=== PATIENT | female | born 2005 | race Caucasian/White ===

== ENCOUNTER 2025-05-27 13:23 | Emergency (ER) | payer MEDICAID, SELFPAY ==
[2025-05-27 14:31] VITALS: BP 120/88; PULSE 118; RESP 18; TEMP 36.7; O2SAT 98; BMI 40.6
--- NOTE | 2025-05-27 14:32 | XR_ITS ---
Examination: CT abdomen and pelvis without contrast. Coronal 3-D reconstructions. Sagittal 2-D reconstructions. Date and time of exam: 05/27/2025 at 4:19 p.m. CTDI: vol (mGy): 11 point DLP: (mGycm): 671 Technique: Axial images of the abdomen have been obtained, 3 mm slice thickness Intravenous contrast material has not been administered. Low dose protocols were performed. One or more of the following dose reduction techniques were used; automated exposure control, adjustment of the mA and/or KV according to patient size, use of iterative reconstruction technique. Findings: Both lower lung zones are clear. No abnormalities are seen in the visible thoracic spine or within the lumbosacral spine or pelvis or hips. The CT appearance of both right and left kidneys and adrenal glands and spleen and pancreas are normal. There is significant enlargement of the liver and there is major fatty infiltration noted throughout the entire liver., In this morbidly obese patient In the pelvis the uterus has a normal size and configuration. Both ovaries are normal in size and appearance. The appendix is seen exceptionally well, its filled with air in its entirely normal. The loops of small bowel and colon all appear normal IMPRESSION: 1. The liver is significantly enlarged and there is major fatty infiltration noted throughout the entire liver 2 the appendix is the deflate identified and entirely normal. 3. The entire abdomen and pelvis have a normal CT appearance in all other respects
[2025-05-27 15:00] LABS: Basophils # (Auto) 0.0 Thou/mm3 (0.0-0.2); Basophils % (Auto) 0 % (0-2.5); Eosinophils # (Auto) 0.0 Thou/mm3 (0.0-0.5); Eosinophils % (Auto) 0 % (0-10); Hematocrit 41.8 % (36.0-46.0); Hemoglobin 13.3 g/dL (12.0-16.0); Immature Granulocytes Auto 0.03 Thou/mm3 (0.00-0.00); Lymphocytes # (Auto) 0.7 Thou/mm3 (1.0-4.8); Lymphocytes % (Auto) 7 % (10-50); Mean Corpuscular HGB Conc 31.8 g/dl (31.0-37.0); Mean Corpuscular Hemoglobin 27.6 pg (25.0-35.0); Mean Corpuscular Volume 87 fL (80-100); Monocytes # (Auto) 0.5 Thou/mm3 (0.0-0.8); Monocytes % (Auto) 4 % (0-12); Neutrophils # (Auto) 9.8 Thou/mm3 (1.8-7.7); Neutrophils % (Auto) 88 % (37-80); Nucleated Red Blood Cell # 0.00 Thou/mm3 (0.00-0.00); Nucleated Red Blood Cell % 0 /100 WBC (0); Platelet Count 281 Thou/mm3 (140-440); RDW Standard Deviation 45.6 fL (36.4-46.3); Red Blood Count 4.82 Miln/mm3 (4.00-5.20); White Blood Count 11.1 Thou/mm3 (4.5-11.0)
[2025-05-27 15:18] LABS: Alanine Aminotransferase 29 U/L (10-49); Albumin, Serum 4.6 gm/dL (3.5-5.0); Albumin/Globulin Ratio 1.5 (1.2-2.2); Alkaline Phosphatase 65 U/L (46-116); Anion Gap 12 (7-16); Aspartate Amino Transferase 24 U/L (0-34); BUN/Creatinine Ratio 11 Ratio (12-20); Bilirubin,Total 0.5 mg/dL (0.3-1.2); Blood Urea Nitrogen 11 mg/dL (9-23); Calcium 9.1 mg/dL (8.3-10.6); Calcium (Corrected) 9.1 mg/dL (8.5-10.1); Carbon Dioxide 26.4 mMol/L (20.0-31.0); Chloride 105 mMol/L (98-107); Creatinine (Component) 1.0 mg/dL (0.6-1.3); Estimated Creatinine Clearance 95.9 mL/min (>60); Globulin 3.1 gm/dL (2.3-3.5); Glucose 104 mg/dL (74-106); Lipase 31 U/L (12-53); Osmolality,Calculated 284 (275-295); Potassium 3.9 mMol/L (3.4-5.1); Sodium 143 mMol/L (136-145); Total Protein 7.7 gm/dL (5.7-8.2); eGFR > 60 See Note
[2025-05-27 15:20] LABS: Collection Type, Urine Clean Catch
[2025-05-27 15:39] LABS: HCG Qualitative,Urine Negative
[2025-05-27 15:42] LABS: Bacteria,Urine 1+; Bilirubin,Urine Negative (Negative); Blood,Urine 2+ (Negative); Color,Urine Yellow (Lt Yel-Yel); Glucose, Urine Negative (Negative); Hyaline Casts,Urine < 1 /hpf (0-1); Ketones,Urine Negative (Negative); Leukocyte Esterase,Urine Positive (Negative); Nitrite,Urine Negative (Negative); PH,Urine 6.0 (5.0-7.0); Protein,Urine 2+ (Neg - Trace); RBC,Urine 6 /hpf (0-3); Specific Gravity,Urine 1.042 (1.001-1.035); Squamous Epithelial Cell,Urine 30 /hpf (0-5); Urobilinogen,Urine Negative mg/dL (0.0-1.0); WBC,Urine 34 /hpf (0-5)
[2025-05-27 15:56] LABS: Clarity,Urine Hazy (Clear/Hazy)
[2025-05-27] MEDS: PANTOPRAZOLE 40 MG TABLET PO (16:05)
[2025-05-27] MEDS: DICYCLOMINE INJ 10 MG/ML 2ML VIAL IM (16:06)
[2025-05-27] MEDS: ONDANSETRON INJ 2 MG/ML INJ 2 ML 4 MG IVP (18:11)
[2025-05-27 18:18] VITALS: PULSE 89; O2SAT 99
--- NOTE | 2025-05-27 18:32 | PD.EDABDPN ---
ED Abdominal Pain RME/HPI General Chief Complaint: Nausea/Vomiting/Diarrhea Stated complaint: SENT BY PMD FOR IVF FOR N/V/D,ELEVATED HR Time seen by provider: 05/27/25 13:37 Arrival date/time: 05/27/25 13:23 This is a case of 20-year-old female who came in in the emergency room due to abdominal pain on and off for 3 days with nausea vomiting and diarrhea patient has nonprojectile vomiting twice today with loose stool 1 or twice a day none watery nonbloody none mucoid persistence of the symptoms this patient sent by the PMD and for possible IV hydration and elevated heart rate patient heart rate in the ER noted to be 90 patient denies any chest pain palpitation or shortness of breath denies any fever or chills Limitations: no limitations Related Data Home Medications ?Medication ?Instructions ?Recorded ?Confirmed loratadine 10 mg tablet (Claritin) 10 mg PO QDAY 04/06/23 04/07/23 vitamin-ferrous fumarate 1 tab PO QDAY 04/06/23 04/07/23 28 mg iron-folic acid 800 mcg tablet ( Vitamins with Minerals) Previous Rx's ?Medication ?Instructions ?Recorded albuterol sulfate 90 mcg/actuation 2 puff inhalation QID PRN 12/13/20 aerosol inhaler (ProAir HFA) shortness of breath or wheezing #8.5 grams cephalexin 500 mg capsule 500 mg PO QID #40 caps 05/27/25 dicyclomine 20 mg tablet 20 mg PO TID PRN abdominal pain 05/27/25 #20 tabs famotidine 20 mg tablet (Pepcid) 20 mg PO BID 30 days #60 tabs 05/27/25 ondansetron 4 mg disintegrating 4 mg PO Q8H #20 tabs 05/27/25 tablet Allergies Allergy/AdvReac Type Severity Reaction Status Date / Time No Known Allergies Allergy Verified 05/27/25 13:26 Review of Systems Review of Systems Systems Reviewed: All systems reviewed, normal except as documented Past Medical History Past Medical History CARDIAC: Negative Congestive Heart Failure RESPIRATORY: Positive Asthma; Negative Chronic Obstructive Pulmonary Disease (COPD) GENITOURINARY: Negative Renal Disease ENDOCRINE: Negative Diabetes Mellitus Type 1 or Diabetes Mellitus Type 2 PSYCHO/SOCIAL: Positive Depression and Anxiety Social History SMOKING STATUS: Never smoker SUBSTANCE USE: does not use ED Exam General Limitations: Present no limitations General appearance: Present alert, in no apparent distress and other (Patient is awake alert oriented not in distress nontoxic looking well-hydrated well nourished) Head Head exam: Present atraumatic, normocephalic and normal inspection Eye Eye exam: Present normal appearance, PERRL and EOMI ENT ENT exam: Present normal exam, normal oropharynx and mucous membranes moist Neck Neck exam: Present normal inspection, full ROM and trachea midline; Absent tenderness, meningismus, lymphadenopathy or thyromegaly Chest Chest inspection: Present normal inspection and symmetric chest wall rise; Absent tenderness Respiratory Respiratory exam: Present normal lung sounds bilaterally; Absent respiratory distress, wheezes, stridor, accessory muscle use or prolonged expiratory phase Cardiovascular Cardiovascular exam: Present regular rate, normal rhythm and normal heart sounds; Absent bradycardia, tachycardia, irregular rhythm, systolic murmur or diastolic murmur Abdominal Exam Abdominal exam: Present soft, tenderness (Normal tenderness epigastric area no CVA tenderness bladder is not distended not tender) and normal bowel sounds; Absent distention, guarding, rebound, rigidity, diminished bowel sounds, hyperactive bowel sounds, hypoactive bowel sounds, organomegaly, psoas sign, obturator sign, Ruano's sign, Rovsing's sign or tenderness at McBurney's Point Abdominal tenderness: Present epigastrium and mild Extremities Exam Extremities exam: Present normal inspection and full ROM Back Exam Back exam: Present normal inspection and full ROM Neurological Exam Neurological exam: Present alert, oriented X3, CN II-XII intact, normal gait and reflexes normal; Absent motor sensory deficit Psychiatric Psychiatric exam: Present normal affect and normal mood Skin Skin exam: Present warm, dry, intact, normal color and other (Excellent skin turgor) Course Quality Measures none Orders Category Date Time Status CT abdomen pelvis wo con Stat Exams 05/27/25 14:32 Completed CBC Stat Lab 05/27/25 14:40 Completed Comprehensive Metabolic Panel Stat Lab 05/27/25 14:40 Completed HCG Qualitative,Urine Stat Lab 05/27/25 15:02 Completed Lipase Stat Lab 05/27/25 14:40 Completed Urinalysis Stat Lab 05/27/25 15:02 Completed Dicyclomine Inj [Bentyl Inj] Med 05/27/25 14:32 Discontinued 10 mg IM X1 ONE Ondansetron Inj [Zofran Inj] Med 05/27/25 14:32 Discontinued 4 mg IVP X1 ONE Pantoprazole [Protonix] Med 05/27/25 14:32 Discontinued 40 mg PO X1 ONE Sodium Chloride 0.9% 1000 ml [Ns] 1,000 ml Med 05/27/25 14:33 Discontinued IV 999 mls/hr cephALEXin [Keflex] Med 05/27/25 18:10 Discontinued 500 mg PO X1 ONE Vital Signs Vital signs: Vital Signs Temperature 98.1 F 05/27/25 14:31 Pulse Rate 118 H 05/27/25 14:31 Respiratory Rate 18 05/27/25 14:31 Blood Pressure 120/88 H 05/27/25 14:31 Pulse Oximetry (%) 98 05/27/25 14:31 Oxygen Delivery Method Room Air 05/27/25 14:31 Oxygen saturation is 98% in room air Abdominal Pain MDM MDM Narrative MDM Narrative:: This is a case of 20-year-old female who came in in the emergency room due to abdominal pain on and off for 3 days with nausea vomiting and diarrhea patient has nonprojectile vomiting twice today with loose stool 1 or twice a day none watery nonbloody none mucoid persistence of the symptoms this patient sent by the PMD and for possible IV hydration and elevated heart rate patient heart rate in the ER noted to be 90 patient denies any chest pain palpitation or shortness of breath denies any fever or chills physical examination patient is awake alert oriented not in distress nontoxic looking well-hydrated well-nourished no signs and symptoms of sepsis dehydration nor hypoxia normal rate regular rhythm no murmur heart rate goes to 89 and 90 patient is afebrile nontachycardic nontachypneic and nonhypoxic clear breath sounds no crackles no rales or retraction no stridor abdominal exam noted mild tenderness in the epigastric area but no guarding no rebound no rigidity negative psoas negative straight or negative Rovsing's negative McBurney's negative Ruano sign negative CVA tenderness excellent skin turgor patient blood test showed no leukocytosis no anemia kidney and liver function is normal no electrolyte imbalance urinalysis shows WBC and RBC in the urine suggestive of urinary tract infection CT scan showed hepatomegaly and fatty liver appendix is normal patient chooses to have oral hydration here in the emergency room was given oral IM Zofran for nausea vomiting IM Bentyl for abdominal cramping Protonix and started on cephalexin after 1 hour patient was reassessed patient has no recurrence of vomiting oral fluid fluid challenge was given patient tolerated 1500 of oral fluid challenge no recurrence of vomiting no abdominal pain abdominal exam is benign and nonsurgical at this point patient is stable to be discharged patient's heart rate remained stable patient will follow-up with PCP to be referred to specialist and for any worsening symptoms and emergent concern return precaution in the ER is advised Patient was discharged with comfortable condition walking with stable gait. Patient verbalized no further complains explained diagnosis and answered patient question. Patient is comfortable with the proposed management plan including the need to follow up with his/her primary care physician and any specialist if applicable Discussed patient for any urgent condition or worsening sx, He/She needed to go to emergency room immediately or call 911. Patient acknowledge the responsibility to follow up as instructed and to monitor her/his symptoms. For any persistence of the symptoms for more than 3-5 days return precaution advised. Discussed the result of the test and was given printed discharge instruction Patient data External records reviewed:: [facility] previous records Clinical information provided by:: patient Social determinants that could affect healthcare access:: none Patient has the following chronic illnesses:: None How is presenting disease/condition affected by chronic disease/condition?: no chronic disease Evaluation data The following diagnostics were reviewed and interpreted by me:: lab results and radiology exam(s) Lab and/or radiology exams considered but not ordered:: Reviewed Interpretation Summary: Reviewed Medications / Prescriptions Medications or Prescriptions considered but not ordered:: Given Medication administrations:: Medication Administration History Discontinued Medications Cephalexin HCl (Cephalexin 250 Mg Capsule) 500 mg PO X1 ONE Stop: 05/27/25 18:11 Dicyclomine HCl (Dicyclomine Inj 10 Mg/Ml 2ml Vial) 10 mg IM X1 ONE Stop: 05/27/25 14:33 Last Admin: 05/27/25 16:06 Dose: 10 mg Documented By: MITRA Sodium Chloride (Ns) 1,000 mls @ 999 mls/hr IV .Q1H1M ONE Stop: 05/27/25 15:33 Ondansetron HCl (Ondansetron Inj 2 Mg/Ml Inj 2 Ml) 4 mg IVP X1 ONE; Protocol Stop: 05/27/25 14:33 Last Admin: 05/27/25 18:11 Dose: 4 mg Documented By: JOSE Comments: was given IM Pantoprazole Sodium (Pantoprazole 40 Mg Tablet) 40 mg PO X1 ONE Stop: 05/27/25 14:33 Last Admin: 05/27/25 16:05 Dose: 40 mg Documented By: KM Given Consultations Consultation(s) initiated? (list below): No Diagnosis Differential diagnosis abdominal pain: abdominal pain, acute appendicitis, calculus of kidney, diverticulitis, gastroenteritis and pancreatitis Most likely diagnosis given after review of the tests above:: Gastritis Admission Indicated Admission indicated?: not indicated Explain why admission is indicated or not indicated:: Not indicated Admission Request Was there a request for admission?: No Admission Attestation Admission request attestation: Not indicated Disposition Plan Disposition Plan: Discharge Discharge Attestation Discharge Attestation: The patient and all family members were given an opportunity to ask questions and understood the discharge instructions. Discharge instructions specifically effects, indications for sooner follow up or return to the emergency department, and the expected course of current diagnosis. Patient condition: Stable Discharge Plan Plan Patient Disposition: HOME (Self Care) Patient condition on transfer: Stable Prescriptions/Referrals Prescriptions/Med Rec: New cephalexin 500 mg capsule 500 mg PO QID Qty: 40 0RF famotidine [Pepcid] 20 mg tablet 20 mg PO BID 30 Days Qty: 60 0RF dicyclomine 20 mg tablet 20 mg PO TID PRN (Reason: abdominal pain) Qty: 20 0RF ondansetron 4 mg tablet,disintegrating 4 mg PO Q8H Qty: 20 0RF No Action albuterol sulfate [ProAir HFA] 90 mcg/actuation HFA aerosol inhaler 2 puff inhalation QID PRN (Reason: shortness of breath or wheezing) Qty: 8.5 0RF vit-iron fum-folic ac [ Vitamin with Minerals] 28 mg iron- 800 mcg Tablet 1 tab PO QDAY loratadine [Claritin] 10 mg Tablet 10 mg PO QDAY Referrals: No Primary/Family,Physician [Primary Care Provider] - In 1 week Problem List Clinical Impression: Abdominal pain, Urinary tract infection, Hepatomegaly, Fatty liver Patient/Caregiver Discharge Instructions Education Materials: Tests for Liver Disease, Abdominal Pain, Nonalcoholic Fatty Liver ..., Urinary Tract Infections in Women Additional Instructions: Follow-up with primary care physician in 2 days for reevaluation and to be referred to pharmaceutical assistant for further evaluation and treatment of hepatomegaly and fatty liver and gastritis for possible EGD recurrence persistent worsening symptoms or any emergent concern call 911 or go to the nearest emergency room take your medication as directed finish the course of antibiotic for your urinary tract infection increase water intake keep hydrated Pedialyte for every bouts of vomiting and diarrhea avoid spicy food avoid skipping of meals avoid fatty fried high cholesterol food avoid soda coffee alcohol Print Language: Danish Stand Alone Forms: [employer] Award Info., Patient Portal Info Letter PA/MEDICAL REIMBURSEMENT SPECIALIST Supervising Physician PA/MEDICAL REIMBURSEMENT SPECIALIST Supervising Physician: Dr. Quarles
== END 2025-05-27 18:19 | disposition home or self-care (01) ==
PROVIDERS: Nurse Practitioner Family; Emergency Provider Family Medicine
DX: N39.0 Urinary tract infection, site not specified (principal); K76.0 Fatty (change of) liver, not elsewhere classified
CPT/HCPCS: 36415; 74176; 80053; 81001; 81025; 83690; 85025; 96372; 96374; 99284; J0500; J2405; A9270